=== PATIENT | female | born 1955 | race Caucasian/White ===

== ENCOUNTER 2017-02-25 13:08 | Emergency (ER) | payer MEDICARE ==
--- NOTE | 2017-02-25 13:51 | ERPHSYRPT ---
- History of Present Illness Time Seen by Provider: 02/25/17 13:44 Source: patient Exam Limitations: no limitations Patient Subjective Stated Complaint: BLEEDING FROM RIGHT EAR Triage Nursing Assessment: C/O BLEEDING FROM RIGHT EAR SINCE YESTERDAY. SKIN W/ D, COLOR NORMAL. RESP NONLABORED. N0 ACTIVE BLEEDING FROM EAR AT THIS TIME. Physician History: The patient is a 61-year-old female who complains of right ear pain since yesterday. She has a history of ear infections as a child so she states slept on a heating pad all night. There was discharge of blood from the ear this morning and the pain in her ear has diminished considerably. She's had no cold or cough recently. Her past medical history is unremarkable. Timing/Duration: gradual onset Severity: moderate ENT Location: ear (R) Prearrival Treatment: no prearrival treatment Modifying Factors: Improves With: nothing Associated Symptoms: ear pain (R), ear drainage Allergies/Adverse Reactions: prednisone Adverse Reaction (Verified 02/25/17 13:31) states "I just want to kill somebody" Also states is bipolar and is not taking med at this time. Hx Tetanus, Diphtheria Vaccination/Date Given: Yes (2013) Hx Influenza Vaccination/Date Given: Yes Hx Pneumococcal Vaccination/Date Given: Yes - Review of Systems Constitutional: No Fever, No Chills Eyes: No Symptoms Ears, Nose, & Throat: Ear Pain, Ear Discharge Respiratory: No Cough, No Dyspnea Cardiac: No Chest Pain, No Edema, No Syncope Abdominal/Gastrointestinal: No Abdominal Pain, No Nausea, No Vomiting, No Diarrhea Genitourinary Symptoms: No Dysuria Musculoskeletal: No Back Pain, No Neck Pain Skin: No Rash Neurological: No Dizziness, No Focal Weakness, No Sensory Changes Psychological: No Symptoms Endocrine: No Symptoms Hematologic/Lymphatic: No Symptoms Immunological/Allergic: No Symptoms All Other Systems: Reviewed and Negative - Past Medical History Pertinent Past Medical History: Yes Neurological History: Migraines ENT History: No Pertinent History Cardiac History: No Pertinent History Respiratory History: Asthma, COPD Endocrine Medical History: No Pertinent History Musculoskeletal History: No Pertinent History GI Medical History: No Pertinent History History: No Pertinent History, Other Psycho-Social History: Bipolar Female Reproductive Disorders: No Pertinent History 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 - Past Surgical History Past Surgical History: Yes Neuro Surgical History: No Pertinent History Cardiac: No Pertinent History Respiratory: No Pertinent History Gastrointestinal: No Pertinent History Genitourinary: No Pertinent History Musculoskeletal: No Pertinent History Female Surgical History: Section Other Surgical History: T&A, throat bx to vocal cord/cancer,lung mass removed, lumpectomy rectal with colonoscopy,throat scraped twice, - Social History Smoking Status: Current every day smoker How long have you smoked: 35 Exposure to second hand smoke: No Drug Use: none Patient Lives Alone: Yes - Nursing Vital Signs Nursing Vital Signs: Initial Vital Signs Temperature 98.6 F Temperature Source Oral Pulse Rate 74 Respiratory Rate 16 Blood Pressure [Right Arm] 150/101 Pain Intensity 5 - Physical Exam General Appearance: mild distress Eye Exam: bilateral eye: normal inspection Ear Exam: right ear: discharge (bloody), TM perforation Nasal Exam: normal inspection Throat Exam: pharynx normal, moist mucus membranes, No tonsillar exudate Neck Exam: supple Cardiovascular/Respiratory Exam: normal breath sounds, regular rate/rhythm Abdominal Exam: non-tender, soft Neurologic Exam: alert, oriented x 3, sensation nml, No motor deficits Skin Exam: normal color, warm, dry SpO2 Interpretation: normal SpO2: 98 Oxygen Delivery: Room Air - Progress Progress: unchanged Counseled pt/family regarding: diagnosis, need for follow-up - Departure Time of Disposition: 13:57 Departure Disposition: Home Clinical Impression: Otitis media with rupture of tympanic membrane Condition: Stable Critical Care Time: No Additional Instructions: You have an infection in her right ear that has caused your eardrum to rupture to relieve the infection that is in your ear. Take Augmentin 875 twice a day for [address] a protective layer such as ear wax that you can by at the drugstore into your right ear before showering. Continue to use a water preventative material in your ear for 2-3 months. Follow-up either with your local doctor or with an ear nose throat specialist. Prescriptions: Amoxicillin/Potassium Clav [Augmentin 875-125 Tablet] 875 mg PO BID #20 tablet
[2017-02-25 14:05] VITALS: BP 162/104
[2017-02-25 14:07] VITALS: PULSE 76; O2SAT 97
== END 2017-02-25 14:08 | disposition home or self-care (01) ==
LOC: ED 13:08
DX: H66.90 Otitis media, unspecified, unspecified ear (principal); H72.91 Unspecified perforation of tympanic membrane, right ear
CPT/HCPCS: 99281

== ENCOUNTER 2017-03-24 13:51 | Emergency (ER) | payer MEDICARE ==
[2017-03-24] MEDS ORDERED: Ativan 2 MG/1 ML VIAL IV ONE (14:26)
--- NOTE | 2017-03-24 14:26 | ERPHSYRPT ---
- History of Present Illness Time Seen by Provider: 03/24/17 14:21 Source: patient Exam Limitations: no limitations Patient Subjective Stated Complaint: SOB Triage Nursing Assessment: PT CAME INTO THE ER IN A WHEELCHIAR. PT WAS SOB WITH HIGH ANXIETY. PT WAS USING ACCESSORY MUSCLES WHEN BREATHING. Physician History: The patient is a 61-year-old female who complains of increasing shortness of breath and epigastric pain for 4 days. She states it feels like her lungs are on fire. She has asthma and COPD. Her breathing got worse today. She has taken numerous albuterol treatments with minimal relief. She smokes. She states the pain is going through to her back. Her past medical history is significant for asthma and COPD as well as anxiety. Timing/Duration: day(s) (4) Activities at Onset: none Severity of Dyspnea-Max: moderate Severity of Dyspnea-Current: mild Possible Cause: frequent episodes, smoke exposure Modifying Factors: Improves With: activity, albuterol inhaler Associated Symptoms: anxiety Allergies/Adverse Reactions: prednisone Adverse Reaction (Verified 03/24/17 14:03) states "I just want to kill somebody" Also states is bipolar and is not taking med at this time. Home Medications: Albuterol 2 mg/5 ml Syrup [Ventolin Syrup 2 mg/5 ml] 2 mg PO UD 03/24/17 [ History] Hx Tetanus, Diphtheria Vaccination/Date Given: No Hx Influenza Vaccination/Date Given: Yes (AUG) Hx Pneumococcal Vaccination/Date Given: Yes Immunizations Up to Date: Yes - Review of Systems Constitutional: No Fever, No Chills Eyes: No Symptoms Ears, Nose, & Throat: No Symptoms Respiratory: Dyspnea, Dyspnea on Exertion (BRIONES) Cardiac: No Chest Pain, No Edema, No Syncope Abdominal/Gastrointestinal: Abdominal Pain Genitourinary Symptoms: No Dysuria Musculoskeletal: No Back Pain, No Neck Pain Skin: No Rash Neurological: No Dizziness, No Focal Weakness, No Sensory Changes Psychological: No Symptoms Endocrine: No Symptoms Hematologic/Lymphatic: No Symptoms Immunological/Allergic: No Symptoms All Other Systems: Reviewed and Negative - Past Medical History Pertinent Past Medical History: Yes Neurological History: Migraines ENT History: No Pertinent History Cardiac History: No Pertinent History Respiratory History: Asthma, COPD Endocrine Medical History: No Pertinent History Musculoskeletal History: No Pertinent History GI Medical History: No Pertinent History History: No Pertinent History, Other Psycho-Social History: Bipolar Female Reproductive Disorders: No Pertinent History 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 - Past Surgical History Past Surgical History: Yes Neuro Surgical History: No Pertinent History Cardiac: No Pertinent History Respiratory: No Pertinent History Gastrointestinal: No Pertinent History Genitourinary: No Pertinent History Musculoskeletal: No Pertinent History Female Surgical History: Section Other Surgical History: T&A, throat bx to vocal cord/cancer,lung mass removed, lumpectomy rectal with colonoscopy,throat scraped twice, - Social History Smoking Status: Current every day smoker How long have you smoked: 35 Exposure to second hand smoke: No Drug Use: none Patient Lives Alone: Yes - Nursing Vital Signs Nursing Vital Signs: Initial Vital Signs Respiratory Rate 38 H 03/24/17 13:52 O2 Sat by Pulse Oximetry 100 03/24/17 13:52 Pain Scale Pain Intensity 3 - Physical Exam General Appearance: mild distress, anxiety Eye Exam: PERRL/EOMI Neck Exam: normal inspection, supple Respiratory Exam: rhonchi Cardiovascular/Chest Exam: normal heart sounds, regular rate/rhythm Abdominal/Gastrointestinal Exam: soft, No tenderness, No distention, No mass Rectal Exam: not done Extremity Exam: non-tender, normal range of motion, normal inspection, no calf tenderness, no pedal edema Neurologic Exam: alert, oriented x 3, cooperative, sap bw bi developer II-XII nml as tested, sensation nml, No motor deficits Skin Exam: normal color, warm, No dry SpO2 Interpretation: normal SpO2: 100 Oxygen Delivery: Room Air - Course EKG Interpreted by Me: RATE, Sinus Rhythm, Ischemic ST-T changes (minimal ST depression in V4 and V5 .) - Radiology Exams Chest X-ray Interpretation: Teleradiologist Report, Negative (per Dr Johnson) - CT Exams Chest CT Interpretation: Tele-radiologist Report, Other (No central PE, worsening emphysema, RUL mass resection, TIFFANY masslike opacity not seen, RLL masslike opacities appear smaller, per DR Johnson) Abdomen/Pelvis CT Interpretation: Tele-radiologist Report, Other (new cirrhotic liver, distended GB with borderline wall thickening, no gallstones or biliary distention, diverticulosis, fecal stasis without obstruction per Dr Johnson.) Ordered Tests: Active Orders 24 hr Category Date Time Status Medical Observer STAT Care 03/24/17 14:26 Active EKG-ER Only STAT Care 03/24/17 14:26 Active IV Insertion STAT Care 03/24/17 14:26 Active Oxygen-ED Only NASAL CANNULA 2 lpm Care 03/24/17 14:26 Active Pulse Oximetry (ED) STAT Care 03/24/17 14:26 Active ABDOMEN AND PELVIS W CONTRAST [CT] Stat Exams 03/24/17 15:30 Completed CHEST 2 VIEWS (PA AND LAT) Stat Exams 03/24/17 14:27 Completed CHEST WITH CONTRAST [CT] Stat Exams 03/24/17 15:30 Completed CBC W DIFF Stat Lab 03/24/17 14:05 Completed CMP Stat Lab 03/24/17 14:05 Completed D-DIMER QUANTITATION Stat Lab 03/24/17 14:05 Completed LIPASE Stat Lab 03/24/17 14:05 Completed Lactic Acid Routine Lab 03/24/17 16:45 Completed Lactic Acid Stat Lab 03/24/17 14:26 Completed NT PRO BNP Stat Lab 03/24/17 14:05 Completed TROPONIN Q3H Lab 03/24/17 14:05 Completed TROPONIN Q3H Lab 03/24/17 17:30 Ordered TROPONIN Q3H Lab 03/24/17 20:30 Ordered TROPONIN Q3H Lab 03/24/17 23:30 Ordered TROPONIN Q3H Lab 03/25/17 02:30 Ordered Medication Summary Generic Name Dose Route Start Last Admin Trade Name Freq PRN Reason Stop Dose Admin Morphine Sulfate 4 mg 03/24/17 17:47 Morphine Sulfate 4 Mg Inj IM 03/24/17 17:48 STAT ONE Discontinued Medications Generic Name Dose Route Start Last Admin Trade Name Freq PRN Reason Stop Dose Admin Lorazepam 1 mg 03/24/17 14:26 03/24/17 14:34 Ativan 2 Mg/1 Ml Vial IV 03/24/17 14:27 1 mg STAT ONE Administration Lorazepam Confirm 03/24/17 14:32 Ativan 2 Mg/1 Ml Vial Administered 03/24/17 14:33 Dose 2 mg .ROUTE .STK-MED ONE Lab/Rad Data: Laboratory Result Diagrams 03/24/17 14:05 03/24/17 14:05 Laboratory Results 03/24/17 03/24/17 03/24/17 Range/Units 16:45 14:26 14:05 WBC (4.0-10.5) K/mm3 RBC (4.1-5.4) M/mm3 Hgb (12.0-16.0) gm/dl Hct (35-47) % MCV (78-100) fl MCH (26-32) pg MCHC (32-36) g/dl RDW (11.5-14.0) % Plt Count (150-450) K/mm3 MPV (6-9.5) fl Gran % (36.0-66.0) % Lymphocytes % (24.0-44.0) % Monocytes % (0.0-12.0) % Eosinophils % (0.00-5.0) % Basophils % (0.0-0.4) % Basophils # (0-0.4) D-Dimer (0-500) ng/mL Sodium (136-145) mEq/L Potassium (3.5-5.1) mEq/L Chloride (98-107) mEq/L Carbon Dioxide (21-32) mEq/L Anion Gap (5-15) MEQ/L BUN (9-20) mg/dL Creatinine (0.55-1.30) mg/dl Estimated GFR ML/MIN Glucose (70-110) MG/DL Lactic Acid 0.6 2.6 H (0.4-2.0) Calcium (8.5-10.1) mg/dL Total Bilirubin (0.2-1.0) mg/dL AST (15-37) U/L ALT (12-78) U/L Alkaline Phosphatase (46-116) U/L Troponin I (0.000-0.056) ng/ml NT-Pro-B Natriuret Pep (0-125) pg/ml Serum Total Protein (6.4-8.2) gm/dL Albumin (3.4-5.0) g/dL Lipase 736 H (73-393) U/L 03/24/17 03/24/17 03/24/17 Range/Units 14:05 14:05 14:05 WBC (4.0-10.5) K/mm3 RBC (4.1-5.4) M/mm3 Hgb (12.0-16.0) gm/dl Hct (35-47) % MCV (78-100) fl MCH (26-32) pg MCHC (32-36) g/dl RDW (11.5-14.0) % Plt Count (150-450) K/mm3 MPV (6-9.5) fl Gran % (36.0-66.0) % Lymphocytes % (24.0-44.0) % Monocytes % (0.0-12.0) % Eosinophils % (0.00-5.0) % Basophils % (0.0-0.4) % Basophils # (0-0.4) D-Dimer 581 H* (0-500) ng/mL Sodium 137 (136-145) mEq/L Potassium 3.4 L (3.5-5.1) mEq/L Chloride 101 (98-107) mEq/L Carbon Dioxide 22.3 (21-32) mEq/L Anion Gap 16.6 H (5-15) MEQ/L BUN 10 (9-20) mg/dL Creatinine 0.91 (0.55-1.30) mg/dl Estimated GFR > 60 ML/MIN Glucose 114 H (70-110) MG/DL Lactic Acid (0.4-2.0) Calcium 9.5 (8.5-10.1) mg/dL Total Bilirubin 1.20 H (0.2-1.0) mg/dL AST 165 H (15-37) U/L ALT 131 H (12-78) U/L Alkaline Phosphatase 240 H (46-116) U/L Troponin I < 0.017 (0.000-0.056) ng/ml NT-Pro-B Natriuret Pep 202 H (0-125) pg/ml Serum Total Protein 10.0 H (6.4-8.2) gm/dL Albumin 3.4 (3.4-5.0) g/dL Lipase (73-393) U/L 03/24/17 Range/Units 14:05 WBC 9.9 (4.0-10.5) K/mm3 RBC 4.23 (4.1-5.4) M/mm3 Hgb 14.0 (12.0-16.0) gm/dl Hct 41.3 (35-47) % MCV 97.6 (78-100) fl MCH 33.1 H (26-32) pg MCHC 33.9 (32-36) g/dl RDW 15.1 H (11.5-14.0) % Plt Count 209 (150-450) K/mm3 MPV 10.7 H (6-9.5) fl Gran % 68.8 H (36.0-66.0) % Lymphocytes % 19.5 L (24.0-44.0) % Monocytes % 10.6 (0.0-12.0) % Eosinophils % 0.6 (0.00-5.0) % Basophils % 0.5 (0.0-0.4) % Basophils # 0.05 (0-0.4) D-Dimer (0-500) ng/mL Sodium (136-145) mEq/L Potassium (3.5-5.1) mEq/L Chloride (98-107) mEq/L Carbon Dioxide (21-32) mEq/L Anion Gap (5-15) MEQ/L BUN (9-20) mg/dL Creatinine (0.55-1.30) mg/dl Estimated GFR ML/MIN Glucose (70-110) MG/DL Lactic Acid (0.4-2.0) Calcium (8.5-10.1) mg/dL Total Bilirubin (0.2-1.0) mg/dL AST (15-37) U/L ALT (12-78) U/L Alkaline Phosphatase (46-116) U/L Troponin I (0.000-0.056) ng/ml NT-Pro-B Natriuret Pep (0-125) pg/ml Serum Total Protein (6.4-8.2) gm/dL Albumin (3.4-5.0) g/dL Lipase (73-393) U/L - Progress Progress: improved Air Movement: good Progress Note: 03/24/17 17:50 I discussed the patient with Dr. Cuong Mueller a GI specialist. He was aware of the laboratory results including the lipase of 736, AST of 165, AST of 131, and total bili of 1.20. I discussed the findings of the CT of the chest and CT of the abdomen with him as well. I gave him at his request the patient's phone number and name. I also faxed the information of the patient to his office. He will have his office call the patient in the morning for follow-up. Blood Culture(s) Obtained: No Antibiotics given: No Discussed with : Other (Cuong Mueller) Counseled pt/family regarding: lab results, diagnosis, need for follow-up, rad results - Departure Time of Disposition: 17:50 Departure Disposition: Home Clinical Impression: Elevated liver enzymes, Elevated lipase Condition: Stable Critical Care Time: No Additional Instructions: You have both elevated liver enzymes and pancreatic enzyme. I spoke with Dr. Cuong Mueller a GI specialist in [place] about your condition. He accepts your care and will call you tomorrow morning. He is aware of your laboratory findings and your CT scan findings. Stay on a clear liquid diet until you see him. You were given lorazepam 1 mg, morphine 4 mg, and fluids by IV in the ER. Take Tylenol No. 3 one to 2 tablets every 4-6 hours as needed. Prescriptions: Codeine Phosphate/APAP #3 [Tylenol #3 Tablet] 1 tab PO Q4-6HPRN PRN #6 tablet PRN Reason: Pain
[2017-03-24] MEDS ORDERED: Ativan 2 MG/1 ML VIAL ONE (14:32)
[2017-03-24 14:45] LABS: BASOPHIL % 0.5 % (0.0-0.4); Eosinophil % 0.6 % (0.00-5.0); Granulocytes % 68.8 % (36.0-66.0); Lymphocytes % 19.5 % (24.0-44.0); Mean Cell Volume 97.6 fl (78-100); Mean Corpuscular Hemoglobin 33.1 pg (26-32); Mean Platelet Volume 10.7 fl (6-9.5); Monocytes % 10.6 % (0.0-12.0); Platelet Count 209 K/mm3 (150-450); Red Blood Count 4.23 M/mm3 (4.1-5.4); Red Cell Distribution Width 15.1 % (11.5-14.0); White Blood Count 9.9 K/mm3 (4.0-10.5)
[2017-03-24 14:48] LABS: Lactic Acid 2.6 (0.4-2.0)
[2017-03-24 15:03] LABS: ALBUMIN 3.4 g/dL (3.4-5.0); ALKALINE PHOSPHATASE 240 U/L (46-116); ANION GAP 16.6 MEQ/L (5-15); BLOOD UREA NITROGEN 10 mg/dL (9-20); CHLORIDE 101 mEq/L (98-107); Carbon Dioxide 22.3 mEq/L (21-32); Glucose 114 MG/DL (70-110); Potassium 3.4 mEq/L (3.5-5.1); SGOT/AST 165 U/L (15-37); SGPT/ALT 131 U/L (12-78); SODIUM 137 mEq/L (136-145)
--- NOTE | 2017-03-24 15:06 | XRAY ---
Indication: Short of breath. Comparison: September 19, 2006. PA/lateral chest again hyperinflated with a few scattered calcified granulomas. Previous right upper lobe mass has been surgically resected. No focal infiltrate, consolidation, or large effusion. Heart is not enlarged. Vascularity normal. Bony thorax intact again with mild osteopenia and degenerative changes. Impression: Nonacute hyperinflated chest with chronic features.
--- NOTE | 2017-03-24 16:44 | XRAY ---
Indication: Chest pain. Elevated d-dimer. Multiple contiguous axial images obtained through the chest using 80 cc Isovue 370 contrast. Comparison: October 03, 2006. No central pulmonary bullous. Heart is not enlarged. Aorta is normal in course and caliber. No pathologic mediastinal/hilar lymphadenopathy. Examination of the lung parenchyma again demonstrates diffuse pulmonary emphysema slightly worsened. Interval surgical resection of previous right upper lung masses. The previous right lower lobe anterior masslike opacities appears slightly smaller, the larger measuring 12 mm, previously 15 mm. Previous left upper lobe masslike opacity not seen presumed treated. No infiltrate or effusion. Minimal left lung base dependent atelectasis. Bony thorax intact again with mild degenerative changes throughout the spine. CT abdomen reported separately. Impression: 1. No central pulmonary embolus. 2. Interval right upper lobe surgical resection of previous masses. Previous left upper lobe masslike opacity not seen presumed treated. Previous right lower lobe masslike opacities appears slightly smaller. 3. Worsening pulmonary emphysema. 3. No acute cardiopulmonary abnormalities. CTDI 10.00
--- NOTE | 2017-03-24 16:50 | XRAY ---
Indication: Back pain. Elevated liver enzymes and bilirubin. Multiple contiguous images obtained through the abdomen and pelvis using 80 cc Isovue 370 contrast only. Comparison: October 03, 2006. CT chest reported separately. Liver now appears cirrhotic with tiny perihepatic fluid. No focal solid/cystic mass. Gallbladder is moderately distended with borderline wall thickening. No gallstones or abnormal biliary distention. Noncontrasted stomach and bowel loops appear nonobstructed. Normal appendix. There is mild diffuse scattered colonic fecal debris throughout. Mild sigmoid diverticulosis without diverticulitis. Remaining pancreas, spleen, adrenal glands, kidneys, ureters, bladder, and uterus appear unremarkable. Mild aortoiliac calcifications. No AAA or pathological retroperitoneal lymphadenopathy. Osseous structures intact with now moderate degenerative changes throughout the spine. Impression: 1. New cirrhotic liver with tiny perihepatic fluid. 2. Distended gallbladder with borderline wall thickening but no gallstones or abnormal biliary distention. 3. Sigmoid diverticulosis. 4. Fecal stasis without obstruction. CTDI 8.31
[2017-03-24] MEDS ORDERED: MORPHINE SULFATE 4 MG INJ IM ONE (17:47)
[2017-03-24] MEDS ORDERED: MORPHINE SULFATE 4 MG INJ ONE (17:52)
[2017-03-24] MEDS ORDERED: Zofran 4 MG/2 ML VIAL IV ONE (17:58)
[2017-03-24] MEDS ORDERED: Zofran 4 MG/2 ML VIAL ONE (18:00)
[2017-03-24 18:33] VITALS: BP 168/90; PULSE 70; O2SAT 97
== END 2017-03-24 18:45 | disposition home or self-care (01) ==
LOC: ED 13:51
DX: R74.8 Abnormal levels of other serum enzymes (principal); J45.909 Unspecified asthma, uncomplicated; J44.9 Chronic obstructive pulmonary disease, unspecified; F17.200 Nicotine dependence, unspecified, uncomplicated
CPT/HCPCS: 36000; 36415; 71020; 71260; 74177; 80053; 83605; 83690; 83880; 84484; 85025; 85379; 93005; 93041; 96374; 96375; 99284; 99285; J2060; J2270; J2405

== ENCOUNTER 2017-12-02 19:32 | Emergency (ER) | payer MEDICARE ==
[2017-12-02] MEDS ORDERED: Sodium Chloride 0.9% 1000 ML 1,000 ML ONE ×2 (20:17→20:57)
[2017-12-02] MEDS: Sodium Chloride 0.9% 1000 ML 1,000 ML IV SCH (20:22)
[2017-12-02 20:54] LABS: BASOPHIL % 0.6 % (0.0-0.4); Basophil (Absolute #) 0.05 (0-0.4); Eosinophil (Absolute #) 0.09 (0-0.5); Granulocyte Absolute (ANC) 5.51 (1.4-6.9); Granulocytes % 63.9 % (36.0-66.0); Hematocrit 37.1 % (35-47); Hemoglobin 12.6 gm/dl (12.0-16.0); Lymphocyte (Absolute #) 1.72 (1.0-4.6); Mean Cell Volume 95.6 fl (78-100); Mean Platelet Volume 10.4 fl (6-9.5); Monocyte (Absolute #) 1.25 (0.0-1.3); Monocytes % 14.5 % (0.0-12.0); Platelet Count 194 K/mm3 (150-450); Red Blood Count 3.88 M/mm3 (4.1-5.4); Red Cell Distribution Width 14.4 % (11.5-14.0); White Blood Count 8.6 K/mm3 (4.0-10.5)
--- NOTE | 2017-12-02 20:54 | ERPHSYRPT ---
- History of Present Illness Time Seen by Provider: 12/02/17 21:20 Source: patient Exam Limitations: clinical condition Patient Subjective Stated Complaint: Pt arrives to ER with c/o cough for "my whole life from allergies, asthma and COPD" but is worse in past 3 days. denies fever. Concerned for pneumonia Triage Nursing Assessment: Lungs clear and diminshed. does not appear to be in any distress at this time with respirations easy even regular and unlabored. Physician History: PATIENT WITH A HISTORY OF COPD COMPLAINS OF A NONPRODUCTIVE COUGH ASSOCIATED WITH DYSPNEA X 3-4 DAYS. HAS ASSOCIATED LEFT POSTERIOR CHEST PAINS WORSE UPON INSPIRATION. DENIES FEVER AND CHILLS. Timing/Duration: day(s) Activities at Onset: activity Severity of Dyspnea-Max: moderate Severity of Dyspnea-Current: moderate Possible Cause: occasional episodes Modifying Factors: Improves With: coughing, exertion Associated Symptoms: cough, lightheadedness, wheezing International travel in last 2 weeks: No Allergies/Adverse Reactions: prednisone Adverse Reaction (Verified 12/02/17 20:11) states "I just want to kill somebody" Also states is bipolar and is not taking med at this time. Home Medications: Albuterol 2.5 mg/3 ml Neb [Proventil 2.5 mg/3 ml Neb] 2.5 mg NEB Q4-6HPRN PRN 12/02/17 [History] Albuterol Sulfate Mdi [Proair Hfa MDI] 2 puff OINH Q4-6HPRN PRN 12/02/17 [ History] Tiotropium [place] [Spiriva] 12/02/17 [History] Hx Tetanus, Diphtheria Vaccination/Date Given: No Hx Influenza Vaccination/Date Given: Yes Hx Pneumococcal Vaccination/Date Given: Yes - Review of Systems Constitutional: No Fever, No Chills Eyes: No Symptoms Ears, Nose, & Throat: No Symptoms Respiratory: Cough, No Dyspnea Cardiac: No Symptoms, No Chest Pain (POSTERIOR LEFT CHEST PAIN), No Edema, No Syncope Abdominal/Gastrointestinal: No Abdominal Pain, No Nausea, No Vomiting, No Diarrhea Genitourinary Symptoms: No Dysuria Musculoskeletal: No Back Pain, No Neck Pain Skin: No Rash Neurological: No Dizziness, No Focal Weakness, No Sensory Changes Psychological: No Symptoms Endocrine: No Symptoms All Other Systems: Reviewed and Negative - Past Medical History Pertinent Past Medical History: Yes Neurological History: Migraines ENT History: No Pertinent History Cardiac History: No Pertinent History Respiratory History: Asthma, COPD Endocrine Medical History: No Pertinent History Musculoskeletal History: No Pertinent History GI Medical History: No Pertinent History, Cirrhosis History: No Pertinent History, Other Psycho-Social History: Bipolar Female Reproductive Disorders: No Pertinent History 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 - Past Surgical History Past Surgical History: Yes Neuro Surgical History: No Pertinent History Cardiac: No Pertinent History Respiratory: No Pertinent History Gastrointestinal: No Pertinent History Genitourinary: No Pertinent History Musculoskeletal: No Pertinent History Female Surgical History: Section Other Surgical History: T&A, throat bx to vocal cord/cancer,lung mass removed, lumpectomy rectal with colonoscopy,throat scraped twice, liver biopsy - Social History Smoking Status: Current every day smoker How long have you smoked: 40 years Exposure to second hand smoke: No Drug Use: none Patient Lives Alone: Yes - Nursing Vital Signs Nursing Vital Signs: Initial Vital Signs Temperature 98.8 F 12/02/17 19:49 Pulse Rate 96 H 12/02/17 19:49 Respiratory Rate 20 12/02/17 19:49 Blood Pressure 155/108 12/02/17 19:49 O2 Sat by Pulse Oximetry 99 12/02/17 19:49 Pain Scale Pain Intensity 2 - Physical Exam General Appearance: mild distress Eye Exam: PERRL/EOMI Neck Exam: normal inspection, supple Respiratory Exam: diminished breath sounds, wheezing (TERMINAL EXPIRATORY WHEEZES) Cardiovascular/Chest Exam: normal heart sounds Abdominal/Gastrointestinal Exam: soft, No tenderness, No distention, No mass Extremity Exam: non-tender, normal range of motion, normal inspection, no calf tenderness, no pedal edema Peripheral Pulses Exam: carotid (R): 2+, carotid (L): 2+, femoral (R): 2+, femoral (L): 2+, dorsalis-pedis (R): 2+, dorsalis-pedis (L): 2+ Neurologic Exam: alert Skin Exam: normal color SpO2 Interpretation: normal SpO2: 99 Oxygen Delivery: Room Air - Course EKG Interpreted by Me: RATE, Sinus Rhythm, NORMAL AXIS, Non-specific ST Changes - Radiology Exams Chest X-ray Interpretation: Interpreted by me (COPD, HYPERVENTILATION) - CT Exams Chest CT Interpretation: Tele-radiologist Report (NO PULMONARY EMBOLISM, A FEW MID RETICULONODULAR DENSITIES IN THE RIGHT LOBE LIKELY REFLECTING PNEUMONIA) Ordered Tests: Active Orders 24 hr Category Date Time Status EKG-ER Only STAT Care 12/02/17 20:03 Active IV Insertion STAT Care 12/02/17 20:15 Active Oxygen-ED Only NASAL CANNULA 2 lpm Care 12/02/17 20:50 Active CHEST 1 VIEW (PORTABLE) Stat Exams 12/02/17 20:05 Taken CHEST WITH CONTRAST [CT] Stat Exams 12/02/17 21:44 Taken BLOOD CULTURE Stat Lab 12/02/17 20:20 Received CBC W DIFF Stat Lab 12/02/17 20:05 Completed CMP Stat Lab 12/02/17 20:05 Completed D-DIMER QUANTITATION Stat Lab 12/02/17 20:05 Completed Lactic Acid Stat Lab 12/02/17 21:15 Completed PROTIME WITH INR Stat Lab 12/02/17 20:05 Completed TROPONIN Q3H Lab 12/02/17 20:05 Completed TROPONIN Q3H Lab 12/03/17 00:20 Received TROPONIN Q3H Lab 12/03/17 03:00 Ordered TROPONIN Q3H Lab 12/03/17 06:00 Ordered TROPONIN Q3H Lab 12/03/17 09:00 Ordered Peak Expiratory Flow Rate ONCE RT 12/02/17 20:51 Completed Respiratory Nebulizer STAT RT 12/02/17 20:52 Completed Medication Summary Generic Name Dose Route Start Last Admin Trade Name Freq PRN Reason Stop Dose Admin Sodium Chloride 1,000 mls @ 100 mls/hr 12/02/17 20:15 12/02/17 20:22 Sodium Chloride 0.9% 1000 Ml IV 01/01/18 20:14 100 mls/hr .Q10H DELFIN Administration Discontinued Medications Generic Name Dose Route Start Last Admin Trade Name Freq PRN Reason Stop Dose Admin Albuterol Sulfate 2.5 mg 12/02/17 20:51 12/02/17 20:58 Proventil 2.5 Mg/3 Ml Neb IH 12/02/17 20:52 2.5 mg STAT ONE Administration Albuterol Sulfate Confirm 12/02/17 20:57 Proventil 2.5 Mg/3 Ml Neb Administered 12/02/17 20:58 Dose 2.5 mg IH .STK-MED ONE Ceftriaxone Sodium/Dextrose 1 g in 50 mls @ 100 mls/hr 12/02/17 20:50 21:02 Rocephin 1 Gm-D5w 50 Ml Bag IV 12/02/17 21:19 100 mls/hr STAT STA Administration Azithromycin 500 mg in 250 mls @ 250 mls/hr 12/02/17 20:50 12/02/17 21:02 Zithromax 500 Mg/ 250 Ml Nacl Premix IV 12/02/17 21:49 250 mls/hr STAT STA Administration Sodium Chloride 1,000 mls @ 999 mls/hr 12/02/17 20:54 12/02/17 20:56 Sodium Chloride 0.9% 1000 Ml IV 12/02/17 21:54 999 mls/hr .Q1H1M STA Administration Azithromycin Confirm 12/02/17 20:56 Zithromax 500 Mg/ 250 Ml Nacl Premix Administered 12/02/17 20:57 Dose 500 mg in 250 mls @ ud IV .STK-MED ONE Ceftriaxone Sodium/Dextrose Confirm 12/02/17 20:56 Rocephin 1 Gm-D5w 50 Ml Bag Administered 12/02/17 20:57 Dose 1 g in 50 mls @ ud IV .STK-MED ONE Lab/Rad Data: Laboratory Result Diagrams 12/02/17 20:05 12/02/17 20:05 Laboratory Results 12/02/17 12/02/17 12/02/17 Range/Units 22:30 21:15 20:05 WBC (4.0-10.5) K/mm3 RBC (4.1-5.4) M/mm3 Hgb (12.0-16.0) gm/dl Hct (35-47) % MCV (78-100) fl MCH (26-32) pg MCHC (32-36) g/dl RDW (11.5-14.0) % Plt Count (150-450) K/mm3 MPV (6-9.5) fl Gran % (36.0-66.0) % Eos # (Auto) (0-0.5) Absolute Lymphs (auto) (1.0-4.6) Absolute Monos (auto) (0.0-1.3) Lymphocytes % (24.0-44.0) % Monocytes % (0.0-12.0) % Eosinophils % (0.00-5.0) % Basophils % (0.0-0.4) % Absolute Granulocytes (1.4-6.9) Basophils # (0-0.4) PT (9.95-12.35) SECONDS INR (0.8-3.0) D-Dimer (215-500) ng/mL Sodium (137-145) mmol/L Potassium (3.5-5.1) mmol/L Chloride (98-107) mmol/L Carbon Dioxide (22-30) mmol/L Anion Gap (5-15) MEQ/L BUN (7-17) mg/dL Creatinine (0.52-1.04) mg/dL Estimated GFR ML/MIN Glucose (74-106) mg/dL Lactic Acid 1.2 (0.4-2.0) Calcium (8.4-10.2) mg/dL Total Bilirubin (0.2-1.3) mg/dL AST (14-36) U/L ALT (0-35) U/L Alkaline Phosphatase (38-126) U/L Troponin I < 0.012 (0.000-0.034) ng/mL Serum Total Protein (6.3-8.2) g/dL Albumin (3.5-5.0) g/dL Influenza Type A Ag NEGATIVE (NEGATIVE) Influenza Type B Ag NEGATIVE (NEGATIVE) RSV (PCR) NEGATIVE (Negative) 12/02/17 12/02/17 12/02/17 Range/Units 20:05 20:05 20:05 WBC 8.6 (4.0-10.5) K/mm3 RBC 3.88 L (4.1-5.4) M/mm3 Hgb 12.6 (12.0-16.0) gm/dl Hct 37.1 (35-47) % MCV 95.6 (78-100) fl MCH 32.4 H (26-32) pg MCHC 34.0 (32-36) g/dl RDW 14.4 H (11.5-14.0) % Plt Count 194 (150-450) K/mm3 MPV 10.4 H (6-9.5) fl Gran % 63.9 (36.0-66.0) % Eos # (Auto) 0.09 (0-0.5) Absolute Lymphs (auto) 1.72 (1.0-4.6) Absolute Monos (auto) 1.25 (0.0-1.3) Lymphocytes % 20.0 L (24.0-44.0) % Monocytes % 14.5 H (0.0-12.0) % Eosinophils % 1.0 (0.00-5.0) % Basophils % 0.6 (0.0-0.4) % Absolute Granulocytes 5.51 (1.4-6.9) Basophils # 0.05 (0-0.4) PT 14.0 H (9.95-12.35) SECONDS INR 1.26 (0.8-3.0) D-Dimer 916.46 H* (215-500) ng/mL Sodium 136 L (137-145) mmol/L Potassium 3.4 L (3.5-5.1) mmol/L Chloride 102 (98-107) mmol/L Carbon Dioxide 27 (22-30) mmol/L Anion Gap 10.4 (5-15) MEQ/L BUN 10 (7-17) mg/dL Creatinine 0.59 (0.52-1.04) mg/dL Estimated GFR > 60.0 ML/MIN Glucose 87 (74-106) mg/dL Lactic Acid (0.4-2.0) Calcium 9.0 (8.4-10.2) mg/dL Total Bilirubin 1.20 (0.2-1.3) mg/dL AST 120 H (14-36) U/L ALT 118 H (0-35) U/L Alkaline Phosphatase 235 H (38-126) U/L Troponin I (0.000-0.034) ng/mL Serum Total Protein 8.6 H (6.3-8.2) g/dL Albumin 3.6 (3.5-5.0) g/dL Influenza Type A Ag (NEGATIVE) Influenza Type B Ag (NEGATIVE) RSV (PCR) (Negative) - Progress Progress: improved Progress Note: 12/03/17 00:45 IV NORMAL SALINE 1 LITER/HR, AFTER 2 SETS OF BLOOD CULTURES X 2, ZITHROMAX 500MG, ROCEPHIN 1GM IVPB 12/03/17 00:51 DISCUSSED WITH PATIENT CONCERNING OBSERVATION FOR 23 HOURS, HOWEVER PATIENT STATES SHE IS UNABLE TO STAY IN THE HOSPITAL, SIGNS AMA Blood Culture(s) Obtained: Yes Antibiotics given: Yes Counseled pt/family regarding: lab results, diagnosis, rad results, smoking cessation - Departure Time of Disposition: 01:05 Departure Disposition: AMA Clinical Impression: PNEUMONIA , EXACERBATION COPD, Elevated liver enzymes Condition: Stable Critical Care Time: No Referrals: DOCTOR,NO FAMILY [Primary Care Provider] - Additional Instructions: CONTINUE AEROSOL TREATMENTS EVERY 4 HOURS WHILE AWAKE. ANTIBIOTIC AUGMENTIN 875 MG TWICE DAILY FOR 10 DAYS. TYLENOL OR MOTRIN NEEDED FOR FEVER. OBTAIN A PRIMARY CARE PROVIDER FOR FOLLOWUP. RETURN TO EMERGENCY FOR DIFFICULTY BREATHING. Prescriptions: Amox Tr/Potass Clav. 875 mg [Augmentin 875-125 Tablet] 875 mg PO BID #20 tablet
[2017-12-02] MEDS ORDERED: Zithromax 500 MG/ 250 ML NaCl Premix 500 MG/250 ML IVPB IV ONE (20:56)
[2017-12-02] MEDS: Sodium Chloride 0.9% 1000 ML 1,000 ML IV STA (20:56)
[2017-12-02] MEDS ORDERED: ROCEPHIN 1 Gm-D5w 50 ml Bag** 1 G/50 ML IVPB IV ONE (20:56)
[2017-12-02 20:57] LABS: Mean Corpuscular Hemoglobin 32.4 pg (26-32)
[2017-12-02] MEDS ORDERED: PROVENTIL 2.5 MG/3 ML NEB IH ONE (20:57)
[2017-12-02] MEDS: PROVENTIL 2.5 MG/3 ML NEB IH ONE (20:58)
[2017-12-02] MEDS: ROCEPHIN 1 Gm-D5w 50 ml Bag** 1 G/50 ML IVPB IV STA (21:02)
[2017-12-02] MEDS: Zithromax 500 MG/ 250 ML NaCl Premix 500 MG/250 ML IVPB IV STA (21:02)
[2017-12-02 21:13] VITALS: PULSE 96
[2017-12-02 21:17] LABS: ALBUMIN 3.6 g/dL (3.5-5.0); ALKALINE PHOSPHATASE 235 U/L (38-126); ANION GAP 10.4 MEQ/L (5-15); BLOOD UREA NITROGEN 10 mg/dL (7-17); CHLORIDE 102 mmol/L (98-107); Carbon Dioxide 27 mmol/L (22-30); Creatinine 1 0.59 mg/dL (0.52-1.04); Glucose 87 mg/dL (74-106); Potassium 3.4 mmol/L (3.5-5.1); SGOT/AST 120 U/L (14-36); SGPT/ALT 118 U/L (0-35); SODIUM 136 mmol/L (137-145); Total Protein 8.6 g/dL (6.3-8.2)
[2017-12-02 21:30] LABS: INR 1.26 (0.8-3.0)
[2017-12-02 21:53] LABS: D-DIMER QUANTITATION 916.46 ng/mL (215-500)
[2017-12-02 23:13] LABS: INFLUENZA A NEGATIVE (NEGATIVE); INFLUENZA B NEGATIVE (NEGATIVE); RESPIRATORY SYNCTIAL VIRUS NEGATIVE (Negative)
[2017-12-03 00:39] VITALS: O2SAT 99
[2017-12-03 01:00] VITALS: BP 135/92
--- NOTE | 2017-12-03 09:00 | XRAY ---
Indication: Cough. Comparison: March 24, 2017. Portable chest again hyperinflated with stable right mid to lower lung nodule. No focal infiltrate, consolidation, or large effusion. Heart is not enlarged. Bony thorax intact again with osteopenia and degenerative changes. Impression: Stable nonacute hyperinflated chest with chronic features.
--- NOTE | 2017-12-03 09:05 | XRAY ---
Indication: Elevated d-dimer. Multiple contiguous axial images obtained through the chest using 80 cc Isovue 370 contrast and PE protocol. Comparison: March 24, 2017. There is good opacification of the pulmonary arteries. Again no filling defect or pulmonary embolus. Heart is not enlarged. Aorta normal in course and caliber. No pathologic mediastinal/hilar lymphadenopathy. Examination of the lung parenchyma again demonstrates diffuse pulmonary emphysema and right upper lung postsurgical changes. Minimal bilateral dependent atelectasis. New patchy interstitial alveolar opacities in the inferior right upper lung and smaller focus in the medial right lower lobe possibly pneumonia. No effusion. Stable 12 mm masslike opacity in the anterior right lower lobe. Bony thorax intact again with mild degenerative changes throughout the spine. Limited upper abdomen again demonstrates cirrhotic liver. In the inferior right lobe liver, there is new incompletely visualized 2.2 x 3.7 cm focus of enhancement. Impression: 1. Again negative pulmonary embolus. 2. New right upper and right lower lung patchy interstitial alveolar opacities possibly pneumonia. No consolidation/effusion. 3. Stable pulmonary emphysema, right lower lobe masslike opacity, and scattered fibrosis/scarring. 4. Stable cirrhotic liver with new right lobe focal enhancement incompletely visualized. CT liver with and without contrast may yield further information. Comment: Preliminary interpretation was made by [facility]. Hepatic findings not reported. I gave telephone report to Dr. Keita at 0905 hrs. on December 03, 2017.
== END 2017-12-03 01:05 | disposition left against medical advice (07) ==
LOC: ED 19:32
DX: J18.9 Pneumonia, unspecified organism (principal); J44.1 Chronic obstructive pulmonary disease with (acute) exacerbation; R74.8 Abnormal levels of other serum enzymes
CPT/HCPCS: 36000; 36415; 71045; 71260; 80053; 83605; 84484; 85025; 85379; 85610; 87040; 87631; 93005; 94150; 94640; 96360; 96361; 96365; 99284; J0456; J0696; A9270-GY

== ENCOUNTER 2018-07-11 08:59 | Emergency (ER) | payer MEDICARE ==
[2018-07-11 09:14] VITALS: O2SAT 99
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
[2018-07-11] MEDS ORDERED: TORAdol 30 mg Injection IM ONE (09:45)
[2018-07-11] MEDS ORDERED: TORAdol 30 mg Injection ONE (09:48)
[2018-07-11 10:19] VITALS: BP 156/98; PULSE 72
--- NOTE | 2018-07-11 15:33 | XRAY ---
Indication: Lateral pain and swelling following fall. Comparison: May 22, 2016. 2 views of the left hip demonstrates stable tiny superior acetabular spurring. Incidental moderate lower lumbar degenerative spondylosis not previously imaged. No other bony, articular, or soft tissue abnormalities.
--- NOTE | 2018-07-11 15:33 | XRAY ---
Indication: Left hip pain and swelling following fall. Comparison: None Single AP pelvis demonstrates small bilateral superior acetabular spurring and moderate lower lumbar degenerative spondylosis. No other bony, articular, or soft tissue abnormalities.
== END 2018-07-11 10:42 | disposition home or self-care (01) ==
LOC: ED 08:59
DX: S70.02XA Contusion of left hip, initial encounter (principal); W03.XXXA Other fall on same level due to collision with another person, initial encounter; Z79.899 Other long term (current) drug therapy
CPT/HCPCS: 72170; 73502; 96372; 99284; J1885

== ENCOUNTER 2018-11-18 07:52 | Emergency (ER) | payer MEDICARE ==
[2018-11-18] MEDS ORDERED: solu-MEDROL 125 MG IV ONE (08:09)
[2018-11-18] MEDS ORDERED: DUONEB 0.5-3 MG/3 ml Neb IH ONE ×2 (08:09→08:22)
--- NOTE | 2018-11-18 08:16 | ERPHSYRPT ---
- History of Present Illness Time Seen by Provider: 11/18/18 08:04 Source: patient Exam Limitations: no limitations Physician History: Pt has been c/o productive cough, yellow phlegm, chest pain, when coughing, nausea x 2 days. She developed increasing SOB, denies high fever, headaches, vomiting, diarrhea, sore throat other complaints. She is heavy smoker. Timing/Duration: day(s) (2) Severity of Dyspnea-Max: moderate Severity of Dyspnea-Current: moderate Possible Cause: frequent episodes Modifying Factors: Improves With: albuterol inhaler Associated Symptoms: intermittent, cough, chest pain/discomfort, wheezing, productive cough Allergies/Adverse Reactions: prednisone Adverse Reaction (Verified 11/18/18 08:09) states "I just want to kill somebody" Also states is bipolar and is not taking med at this time. Home Medications: Albuterol 2.5 mg/3 ml Neb [Proventil 2.5 mg/3 ml Neb] 2.5 mg NEB Q4-6HPRN PRN 12/02/17 [History] Albuterol Sulfate Mdi [Proair Hfa MDI] 2 puff OINH Q4-6HPRN PRN 12/02/17 [ History] Tiotropium [place] [Spiriva] 18 mcg IH DAILY 12/02/17 [History] Aspirin [[place] Aspirin EC] 81 mg PO DAILY 11/18/18 [History] Hx Tetanus, Diphtheria Vaccination/Date Given: Yes Hx Influenza Vaccination/Date Given: Yes Hx Pneumococcal Vaccination/Date Given: Yes - Review of Systems Constitutional: No Symptoms Eyes: No Symptoms Ears, Nose, & Throat: No Symptoms Respiratory: Cough, Dyspnea, Wheezing Cardiac: Chest Pain, No Edema Abdominal/Gastrointestinal: Nausea Musculoskeletal: No Symptoms Skin: No Symptoms Neurological: No Symptoms Psychological: No Symptoms All Other Systems: Reviewed and Negative - Past Medical History Pertinent Past Medical History: Yes Neurological History: Migraines ENT History: No Pertinent History Cardiac History: No Pertinent History Respiratory History: Asthma, COPD Endocrine Medical History: No Pertinent History Musculoskeletal History: No Pertinent History GI Medical History: No Pertinent History, Cirrhosis History: No Pertinent History, Other Psycho-Social History: Bipolar Female Reproductive Disorders: No Pertinent History 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 - Past Surgical History Past Surgical History: Yes Neuro Surgical History: No Pertinent History Cardiac: No Pertinent History Respiratory: No Pertinent History Gastrointestinal: No Pertinent History Genitourinary: No Pertinent History Musculoskeletal: No Pertinent History Female Surgical History: Section Other Surgical History: T&A, throat bx to vocal cord/cancer,lung mass removed, lumpectomy rectal with colonoscopy,throat scraped twice, liver biopsy - Social History Smoking Status: Current every day smoker How long have you smoked: 30 years Exposure to second hand smoke: Yes Drug Use: none Patient Lives Alone: No - Nursing Vital Signs Nursing Vital Signs: Initial Vital Signs Temperature 97.5 F 11/18/18 08:00 Pulse Rate 80 11/18/18 08:00 Respiratory Rate 20 11/18/18 08:00 Blood Pressure 137/93 11/18/18 08:00 O2 Sat by Pulse Oximetry 94 L 11/18/18 08:00 Pain Scale Pain Intensity 2 - Physical Exam General Appearance: no apparent distress Eye Exam: eyes nml inspection Ears, Nose, Throat Exam: normal ENT inspection, normal pharynx, No nasal congestion (dry tongue), No tonsillar exudate Neck Exam: normal inspection, non-tender, supple, No carotid bruit, No JVD Respiratory Exam: airway intact, diminished breath sounds, rhonchi (few, scattered bilateral), No chest tenderness, No respiratory distress Cardiovascular/Chest Exam: normal heart sounds, regular rate/rhythm, normal peripheral pulses, No murmur, No edema, No JVD Abdominal/Gastrointestinal Exam: soft, normal bowel sounds, No tenderness, No distention, No mass, No guarding, No rebound Extremity Exam: non-tender, No no calf tenderness, No no pedal edema Peripheral Pulses Exam: dorsalis-pedis (R): 1+, dorsalis-pedis (L): 1+ Neurologic Exam: alert, oriented x 3, cooperative, normal mood/affect Skin Exam: normal color, warm, dry, No rash, No petechiae Lymphatic Exam: No adenopathy SpO2 Interpretation: borderline oxygenation - Course Nursing assessment & vital signs reviewed: Yes EKG Interpreted by Me: RATE (81/min), Left Abercrombie Deviation, NORMAL INTERVALS, Non -specific ST Changes, Other (repeat Ek/min, NSRunchanged) - Radiology Exams Chest X-ray Interpretation: Interpreted by me, Negative, Other (COPD, chronic changes) - CT Exams Chest CT Interpretation: Tele-radiologist Report, Other (negative embolus, new right middle lobe atelectasis and left upper lobe air space opacity) - Radiology Ultrasound Exam Gallbladder Ultrasound: tele radiology report, Other (gallbladder sludge , no cholecytitis) Ordered Tests: Active Orders 24 hr Category Date Time Status Shampoo Technician STAT Care 11/18/18 08:09 Active EKG-ER Only STAT Care 11/18/18 08:09 Active EKG-ER Only STAT Care 11/18/18 10:21 Active IV Insertion STAT Care 11/18/18 08:09 Active Oxygen-ED Only Nasal Cannula 2 lpm Care 11/18/18 08:09 Active CHEST 2 VIEWS (PA AND LAT) Stat Exams 11/18/18 08:09 Completed CHEST WITH CONTRAST [CT] Stat Exams 11/18/18 10:24 Completed GALLBLADDER [US] Stat Exams 11/18/18 11:20 Completed BLOOD CULTURE Stat Lab 11/18/18 08:25 Received CBC W DIFF Stat Lab 11/18/18 08:09 Completed CMP Stat Lab 11/18/18 08:25 Completed D-DIMER QUANTITATION Stat Lab 11/18/18 08:30 Completed Lactic Acid Stat Lab 11/18/18 08:38 Completed MAGNESIUM Stat Lab 11/18/18 08:25 Completed NT PRO BNP Stat Lab 11/18/18 08:25 Completed PROTIME WITH INR Stat Lab 11/18/18 08:25 Completed PTT Stat Lab 11/18/18 08:25 Completed TROPONIN Q3H Lab 11/18/18 08:25 Completed Peak Expiratory Flow Rate ONCE RT 11/18/18 08:30 Active Respiratory Nebulizer STAT RT 11/18/18 08:10 Completed Respiratory Therapy Assessment DAILY RT 11/18/18 08:30 Active Medication Summary Discontinued Medications Generic Name Dose Route Start Last Admin Trade Name Freq PRN Reason Stop Dose Admin Albuterol/Ipratropium 3 ml 11/18/18 08:09 11/18/18 08:26 Duoneb 0.5-3 Mg/3 Ml Neb IH 11/18/18 08:10 3 ml STAT ONE Administration Albuterol/Ipratropium Confirm 11/18/18 08:22 Duoneb 0.5-3 Mg/3 Ml Neb Administered 11/18/18 08:23 Dose 3 ml IH .STK-MED ONE Sodium Chloride 1,000 mls @ 999 mls/hr 11/18/18 08:57 11/18/18 09:09 Sodium Chloride 0.9% 1000 Ml IV 11/18/18 09:57 999 mls/hr .Q1H1M STA Administration Sodium Chloride Confirm 11/18/18 09:05 Sodium Chloride 0.9% 1000 Ml Administered 11/18/18 09:06 Dose 1,000 mls @ ud .ROUTE .STK-MED ONE Ceftriaxone Sodium/Dextrose 1 g in 50 mls @ 100 mls/hr 11/18/18 09:25 09:35 Rocephin 1 Gm-D5w 50 Ml Bag IV 11/18/18 09:54 100 ml/hr STAT STA 100 mls/hr Administration Azithromycin 500 mg in 250 mls @ 250 mls/hr 11/18/18 09:25 11/18/18 09:52 Zithromax 500 Mg/ 250 Ml Nacl Premix IV 11/18/18 10:24 250 ml/hr STAT STA 250 mls/hr Administration Ceftriaxone Sodium/Dextrose Confirm 11/18/18 09:32 Rocephin 1 Gm-D5w 50 Ml Bag Administered 11/18/18 09:33 Dose 1 g in 50 mls @ ud IV .STK-MED ONE Azithromycin Confirm 11/18/18 09:52 Zithromax 500 Mg/ 250 Ml Nacl Premix Administered 11/18/18 09:53 Dose 500 mg in 250 mls @ ud IV .STK-MED ONE Metronidazole 500 mg in 100 mls @ 200 mls/hr 11/18/18 11:22 11/18/18 11:37 Flagyl 500 Mg Ivpb IV 11/18/18 11:51 200 mls/hr STAT STA Administration Metronidazole Confirm 11/18/18 11:35 Flagyl 500 Mg Ivpb Administered 11/18/18 11:36 Dose 500 mg in 100 mls @ ud IV .STK-MED ONE Methylprednisolone Sodium Succinate 125 mg 11/18/18 08:09 11/18/18 08:34 Solu-Medrol 125 Mg IV 11/18/18 08:10 125 mg STAT ONE Administration Methylprednisolone Sodium Succinate Confirm 11/18/18 08:30 Solu-Medrol 125 Mg Administered 04/03/19 08:31 Dose 125 mg .ROUTE .STK-MED ONE Lab/Rad Data: Laboratory Result Diagrams 11/18/18 08:09 11/18/18 08:25 Laboratory Results 11/18/18 11/18/18 11/18/18 Range/Units 08:38 08:30 08:25 WBC (4.0-10.5) K/mm3 RBC (4.1-5.4) M/mm3 Hgb (12.0-16.0) gm/dl Hct (35-47) % MCV (78-100) fl MCH (26-32) pg MCHC (32-36) g/dl RDW (11.5-14.0) % Plt Count (150-450) K/mm3 MPV (6-9.5) fl Gran % (36.0-66.0) % Eos # (Auto) (0-0.5) Absolute Lymphs (auto) (1.0-4.6) Absolute Monos (auto) (0.0-1.3) Lymphocytes % (24.0-44.0) % Monocytes % (0.0-12.0) % Eosinophils % (0.00-5.0) % Basophils % (0.0-0.4) % Absolute Granulocytes (1.4-6.9) Basophils # (0-0.4) PT (9.95-12.35) SECONDS INR (0.8-3.0) APTT (25.3-37.0) SECONDS D-Dimer 665 H* (215-500) ng/mL Sodium (137-145) mmol/L Potassium (3.5-5.1) mmol/L Chloride (98-107) mmol/L Carbon Dioxide (22-30) mmol/L Anion Gap (5-15) MEQ/L BUN (7-17) mg/dL Creatinine (0.52-1.04) mg/dL Estimated GFR ML/MIN Glucose (74-106) mg/dL Lactic Acid 2.5 H (0.4-2.0) Calcium (8.4-10.2) mg/dL Magnesium (1.6-2.3) mg/dL Total Bilirubin (0.2-1.3) mg/dL AST (14-36) U/L ALT (0-35) U/L Alkaline Phosphatase (38-126) U/L Troponin I < 0.012 (0.000-0.034) ng/mL NT-Pro-B Natriuret Pep (0-900) pg/mL Serum Total Protein (6.3-8.2) g/dL Albumin (3.5-5.0) g/dL Influenza Type A Ag (NEGATIVE) Influenza Type B Ag (NEGATIVE) RSV (PCR) (Negative) 11/18/18 11/18/18 11/18/18 Range/Units 08:25 08:25 08:15 WBC (4.0-10.5) K/mm3 RBC (4.1-5.4) M/mm3 Hgb (12.0-16.0) gm/dl Hct (35-47) % MCV (78-100) fl MCH (26-32) pg MCHC (32-36) g/dl RDW (11.5-14.0) % Plt Count (150-450) K/mm3 MPV (6-9.5) fl Gran % (36.0-66.0) % Eos # (Auto) (0-0.5) Absolute Lymphs (auto) (1.0-4.6) Absolute Monos (auto) (0.0-1.3) Lymphocytes % (24.0-44.0) % Monocytes % (0.0-12.0) % Eosinophils % (0.00-5.0) % Basophils % (0.0-0.4) % Absolute Granulocytes (1.4-6.9) Basophils # (0-0.4) PT 14.7 H (9.95-12.35) SECONDS INR 1.26 (0.8-3.0) APTT 30.6 (25.3-37.0) SECONDS D-Dimer (215-500) ng/mL Sodium 139 (137-145) mmol/L Potassium 3.7 (3.5-5.1) mmol/L Chloride 104 (98-107) mmol/L Carbon Dioxide 27 (22-30) mmol/L Anion Gap 12.3 (5-15) MEQ/L BUN 12 (7-17) mg/dL Creatinine 0.70 (0.52-1.04) mg/dL Estimated GFR > 60.0 ML/MIN Glucose 165 H (74-106) mg/dL Lactic Acid (0.4-2.0) Calcium 9.2 (8.4-10.2) mg/dL Magnesium 1.6 (1.6-2.3) mg/dL Total Bilirubin 1.50 H (0.2-1.3) mg/dL AST 113 H (14-36) U/L ALT 77 H (0-35) U/L Alkaline Phosphatase 190 H (38-126) U/L Troponin I (0.000-0.034) ng/mL NT-Pro-B Natriuret Pep 322 (0-900) pg/mL Serum Total Protein 8.4 H (6.3-8.2) g/dL Albumin 3.7 (3.5-5.0) g/dL Influenza Type A Ag NEGATIVE (NEGATIVE) Influenza Type B Ag NEGATIVE (NEGATIVE) RSV (PCR) NEGATIVE (Negative) 11/18/18 Range/Units 08:09 WBC 11.4 H (4.0-10.5) K/mm3 RBC 4.09 L (4.1-5.4) M/mm3 Hgb 13.2 (12.0-16.0) gm/dl Hct 39.9 (35-47) % MCV 97.6 (78-100) fl MCH 32.2 H (26-32) pg MCHC 33.1 (32-36) g/dl RDW 15.1 H (11.5-14.0) % Plt Count 172 (150-450) K/mm3 MPV 10.1 H (6-9.5) fl Gran % 84.2 H (36.0-66.0) % Eos # (Auto) 0.01 (0-0.5) Absolute Lymphs (auto) 0.68 L (1.0-4.6) Absolute Monos (auto) 1.07 (0.0-1.3) Lymphocytes % 6.0 L (24.0-44.0) % Monocytes % 9.4 (0.0-12.0) % Eosinophils % 0.1 (0.00-5.0) % Basophils % 0.3 (0.0-0.4) % Absolute Granulocytes 9.56 H (1.4-6.9) Basophils # 0.03 (0-0.4) PT (9.95-12.35) SECONDS INR (0.8-3.0) APTT (25.3-37.0) SECONDS D-Dimer (215-500) ng/mL Sodium (137-145) mmol/L Potassium (3.5-5.1) mmol/L Chloride (98-107) mmol/L Carbon Dioxide (22-30) mmol/L Anion Gap (5-15) MEQ/L BUN (7-17) mg/dL Creatinine (0.52-1.04) mg/dL Estimated GFR ML/MIN Glucose (74-106) mg/dL Lactic Acid (0.4-2.0) Calcium (8.4-10.2) mg/dL Magnesium (1.6-2.3) mg/dL Total Bilirubin (0.2-1.3) mg/dL AST (14-36) U/L ALT (0-35) U/L Alkaline Phosphatase (38-126) U/L Troponin I (0.000-0.034) ng/mL NT-Pro-B Natriuret Pep (0-900) pg/mL Serum Total Protein (6.3-8.2) g/dL Albumin (3.5-5.0) g/dL Influenza Type A Ag (NEGATIVE) Influenza Type B Ag (NEGATIVE) RSV (PCR) (Negative) - Progress Progress: improved Air Movement: good Progress Note: 11/18/18 12:27 Pt ahjs been afebrile, denies pain, or severe difficulty breathing, improved altogether, we discussed her findings with her and her daughter, she refused repeat troponin and lactic acid, despite explaining the importance of these tests, she is alert and oriented x4, mentally competent, she was given 125 mg Solu-medrol and Rocephin, Zithromax, and Flagyl, will discharge to rest x 2-3 days, continue Albuterol inhaler and nebulizer, and follow up with her physician in 2-3 days. Blood Culture(s) Obtained: Yes Antibiotics given: Yes Counseled pt/family regarding: lab results, diagnosis, need for follow-up, rad results - Departure Departure Disposition: Home Clinical Impression: Bronchitis Condition: Stable Critical Care Time: No Referrals: THANIA LIND MD [Primary Care Provider] - Instructions: Shortness of Breath (Dyspnea) (DC), Exacerbation of COPD (DC), Acute Bronchitis, Adult (DC) Additional Instructions: Rest x 2-3 days, drink plenty of fluids, and continue Albuterol inhaler and nebulizer as directed, follow up with your physician in 2-3 days, or return if severe shortness of breath, chest pain, vomiting, fever> 102 F! Prescriptions: Azithromycin 250 mg [Zithromax 250 MG TABLET] 250 mg PO ZPACK #6 tablet Methylprednisolone Packet [Medrol Dosepack] 4 mg PO UD #1 packet
[2018-11-18] MEDS ORDERED: solu-MEDROL 125 MG ONE (08:30)
[2018-11-18 08:32] LABS: BASOPHIL % 0.3 % (0.0-0.4); Basophil (Absolute #) 0.03 (0-0.4); Eosinophil % 0.1 % (0.00-5.0); Eosinophil (Absolute #) 0.01 (0-0.5); Granulocyte Absolute (ANC) 9.56 (1.4-6.9); Granulocytes % 84.2 % (36.0-66.0); Hematocrit 39.9 % (35-47); Hemoglobin 13.2 gm/dl (12.0-16.0); Lymphocyte (Absolute #) 0.68 (1.0-4.6); Mean Cell Volume 97.6 fl (78-100); Mean Corpuscular Hgb Concent. 33.1 g/dl (32-36); Mean Platelet Volume 10.1 fl (6-9.5); Monocyte (Absolute #) 1.07 (0.0-1.3); Monocytes % 9.4 % (0.0-12.0); Platelet Count 172 K/mm3 (150-450); Red Blood Count 4.09 M/mm3 (4.1-5.4); Red Cell Distribution Width 15.1 % (11.5-14.0); White Blood Count 11.4 K/mm3 (4.0-10.5)
[2018-11-18 08:33] LABS: Mean Corpuscular Hemoglobin 32.2 pg (26-32)
[2018-11-18 08:38] LABS: INR 1.26 (0.8-3.0); PROTIME 14.7 SECONDS (9.95-12.35)
[2018-11-18 08:40] LABS: PTT 30.6 SECONDS (25.3-37.0)
[2018-11-18 08:41] LABS: Lactic Acid 2.5 (0.4-2.0)
[2018-11-18 08:50] LABS: ALBUMIN 3.7 g/dL (3.5-5.0); ALKALINE PHOSPHATASE 190 U/L (38-126); ANION GAP 12.3 MEQ/L (5-15); BLOOD UREA NITROGEN 12 mg/dL (7-17); CHLORIDE 104 mmol/L (98-107); Calcium 9.2 mg/dL (8.4-10.2); Carbon Dioxide 27 mmol/L (22-30); Glucose 165 mg/dL (74-106); MAGNESIUM 1.6 mg/dL (1.6-2.3); NT PRO BNP 322 pg/mL (0-900); Potassium 3.7 mmol/L (3.5-5.1); SGOT/AST 113 U/L (14-36); SGPT/ALT 77 U/L (0-35); SODIUM 139 mmol/L (137-145); Total Protein 8.4 g/dL (6.3-8.2)
--- NOTE | 2018-11-18 08:53 | XRAY ---
Indication: Short of breath. Chest pain. Surgical history partial right lung resection. Comparison: December 02, 2017. PA/lateral chest again demonstrates COPD, right perihilar fibrosis/scarring, and a few right lung calcified granulomas. No focal infiltrate, consolidation, or large effusion. Heart and mediastinal structures within normal limits. Bony thorax intact again with mild osteopenia, mild scoliosis, and degenerative changes. Impression: Stable nonacute hyperinflated chest with chronic features.
[2018-11-18] MEDS ORDERED: Sodium Chloride 0.9% 1000 ML 1,000 ML IV STA (08:57)
[2018-11-18 09:03] LABS: INFLUENZA A NEGATIVE (NEGATIVE); INFLUENZA B NEGATIVE (NEGATIVE); RESPIRATORY SYNCTIAL VIRUS NEGATIVE (Negative)
[2018-11-18] MEDS ORDERED: Sodium Chloride 0.9% 1000 ML 1,000 ML ONE (09:05)
[2018-11-18] MEDS ORDERED: ROCEPHIN 1 Gm-D5w 50 ml Bag** 1 G/50 ML IVPB IV STA (09:25)
[2018-11-18] MEDS ORDERED: Zithromax 500 MG/ 250 ML NaCl Premix 500 MG/250 ML IVPB IV STA (09:25)
[2018-11-18] MEDS ORDERED: ROCEPHIN 1 Gm-D5w 50 ml Bag** 1 G/50 ML IVPB IV ONE (09:32)
[2018-11-18] MEDS ORDERED: Zithromax 500 MG/ 250 ML NaCl Premix 500 MG/250 ML IVPB IV ONE (09:52)
--- NOTE | 2018-11-18 10:52 | XRAY ---
Indication: Short of breath and chest pain 2 days. Surgical history of partial right lung resection. Multiple contiguous axial images obtained through the chest using 80 cc Isovue 370 contrast and PE protocol. Comparison: CT chest without contrast April 17, 2018. There is satisfactory opacification of the pulmonary arteries to include the lobar and segmental branches. No filling defect or pulmonary embolus. Heart is not enlarged. Aorta is normal in course and caliber. No pathologic mediastinal/hilar lymphadenopathy. Examination of the lung parenchyma again demonstrates diffuse pulmonary emphysema, scattered fibrosis/scarring, partial right upper lobectomy, and right lower lobe calcified/noncalcified nodules. New near complete right middle lobe atelectasis with right lung volume loss and mild shift of the heart/mediastinal structures. Also new left upper lobe patchy airspace opacity. No effusion. Bony thorax intact again with mild degenerative changes throughout the spine. Limited upper abdomen again demonstrates cirrhotic liver without large ascites. New incompletely visualized distended gallbladder with pericholecystic fluid. Impression: 1. Negative pulmonary embolus. 2. New right middle lobe atelectasis and left upper lobe airspace opacity. No effusion. 3. Stable pulmonary emphysema, fibrosis/scarring, right lower lobe calcified/noncalcified nodules, and partial right upper lobectomy. 4. New incompletely visualized distended gallbladder with pericholecystic fluid. Gallbladder sonogram may yield further information. 5. Stable cirrhosis without large ascites. CT DI 10.00
[2018-11-18 11:15] VITALS: PULSE 85
[2018-11-18] MEDS ORDERED: FLAGYL 500 MG IVPB 500 MG/100 ML BAG IV STA (11:22)
[2018-11-18] MEDS ORDERED: FLAGYL 500 MG IVPB 500 MG/100 ML BAG IV ONE (11:35)
--- NOTE | 2018-11-18 12:19 | XRAY ---
Indication: Elevated LFTs. Abnormal gallbladder on same day CT chest. Two-dimensional gallbladder sonogram performed. Comparison: None Gallbladder is moderately distended with minimal sludge in the dependent portion. No gallstones, wall thickening, or pericholecystic fluid. Common bile duct measures 2.3 mm. No intrahepatic biliary distention. Remaining visualized portions of the liver, pancreas, and right kidney appear sonographically unremarkable. Right kidney measures 10.2 cm in length. No ascites. Impression: 1. Minimal gallbladder sludge. Negative acute cholecystitis or biliary distention. 2. Remaining gallbladder sonogram is negative.
[2018-11-18 12:25] VITALS: BP 100/84; O2SAT 96
== END 2018-11-18 12:46 | disposition home or self-care (01) ==
LOC: ED 07:52
DX: J40 Bronchitis, not specified as acute or chronic (principal); J45.909 Unspecified asthma, uncomplicated; J44.9 Chronic obstructive pulmonary disease, unspecified; Z79.899 Other long term (current) drug therapy; A35 Other tetanus; Z23 Encounter for immunization; Z85.21 Personal history of malignant neoplasm of larynx
CPT/HCPCS: 36000; 36415; 71046; 71260; 76705; 80053; 83605; 83735; 83880; 84484; 85025; 85379; 85610; 85730; 87040; 87077; 87631; 93005; 94150; 94640; 96360; 96365; 96367; 96374; 99285; J0456; J0696; J2930; A9270-GY